=== PATIENT | female | born 1940 | race American Indian/Alaskan Native ===

== ENCOUNTER → 2018-03-26 | Outpatient (CLI) | payer MEDICARE ==
[2018-03-26 14:19] LABS: Creatinine,Urine 116.3 mg/dL (0.1-20.0)
[2018-03-26 14:21] LABS: Bacteria,Urine 1+ /HPF (Negative); Bilirubin,Urine NEG (Negative); Blood,Urine NEG (Negative); Color,Urine Yellow (Yellow); Mucus,Urine FEW /HPF; Urobilinogen,Urine < 2.0 mg/dL (<2.0)
== END | disposition home or self-care (01) ==
LOC: LAB 13:49
PROVIDERS: ATTEND Internal Medicine Nephrology
DX: I12.9 Hypertensive chronic kidney disease with stage 1 through stage 4 chronic kidney disease, or unspecified chronic kidney disease (principal); E08.29 Diabetes mellitus due to underlying condition with other diabetic kidney complication; N18.2 Chronic kidney disease, stage 2 (mild); G47.30 Sleep apnea, unspecified; R80.9 Proteinuria, unspecified; R60.9 Edema, unspecified; M12.9 Arthropathy, unspecified; E79.0 Hyperuricemia without signs of inflammatory arthritis and tophaceous disease; E78.00 Pure hypercholesterolemia, unspecified; E66.9 Obesity, unspecified; J45.909 Unspecified asthma, uncomplicated; Z90.710 Acquired absence of both cervix and uterus; Z90.49 Acquired absence of other specified parts of digestive tract
CPT/HCPCS: 36415; 80048; 81001; 82570; 84300